=== PATIENT | male | born 1985 | race Asian ===

== ENCOUNTER 2019-12-25 18:19 | Emergency (ER) | payer OTHER ==
[~2019-12-25] VITALS: Ht 172.7 cm; Wt 81.6 kg
[2019-12-25 18:42] VITALS: Ht 172.7 cm; Wt 81.6 kg
[2019-12-25 19:21] LABS: microscopic required? NO
[2019-12-25 19:25] LABS: BASOPHIL % 0.5 % (0-2); PLATELET COUNT 267 x10^3mcL (130-400); RED CELL DISTRIBUTION WIDTH 13.3 % (11.5-14.5)
[2019-12-25 19:54] LABS: CALCIUM 8.3 mg/dL (8.5-10.1); CARBON DIOXIDE 25.2 mmol/L (21-32); CHLORIDE SERUM 102 mmol/L (98-107); CREATININE SERUM 0.9 mg/dL (0.7-1.3); GFR1 > 60 mL/min; GLUCOSE SERUM 107 mg/dL (74-106); POTASSIUM SERUM 3.5 mmol/L (3.5-5.1); SODIUM SERUM 140 mmol/L (136-145)
[2019-12-25 20:01] LABS: UA SPECIFIC GRAVITY <=1.005 (1.005-1.035); urine erythrocyte NEGATIVE (NEGATIVE)
[2019-12-25 20:07] LABS: ALKALINE PHOSPHATASE 46 U/L (46-116); ALT/SGPT 87 U/L (16-63); AST/SGOT 35 U/L (15-37); BILIRUBIN TOTAL 0.4 mg/dL (0.20-1.00); LIPASE 153 IU/L (73-393); T4(THYROXINE) 5.3 ug/dL (4.7-13.3); TOTAL PROTEIN, SERUM 7.3 g/dL (6.4-8.2)
[2019-12-25 20:18] LABS: CHOLESTEROL 210 mg/dL (<200); HDL CHOLESTEROL 25 mg/dL (40-60)
[2019-12-25 20:18] LABS: AMPHETAMINE QUAL UR NONE DETECTED (See below)
[2019-12-25 20:42] VITALS: BP 131/90
== END 2019-12-25 20:42 | disposition home or self-care (01) ==
LOC: ED 18:19
PROVIDERS: Emergency Medicine
DX: R07.89 Other chest pain (principal); R42 Dizziness and giddiness; Z90.89 Acquired absence of other organs
CPT/HCPCS: G0480; Q0092